=== PATIENT | male | born 1990 | race Caucasian/White ===

== ENCOUNTER 2023-03-24 09:43 | Emergency (ER) | payer OTHER, SELFPAY ==
[2023-03-24 09:57] VITALS: BP 118/76; PULSE 70; RESP 16; TEMP 36.6; O2SAT 100
--- NOTE | 2023-03-24 10:07 | ED.URI ---
HPI - URI/Sore Throat General Chief Complaint: Upper Respiratory Infection Stated Complaint: Sinus Infection Time Seen by Provider: 03/24/23 10:08 Source: patient Mode of arrival: ambulatory Limitations: no limitations History of Present Illness HPI Narrative: 33 y/o male presented for c/o left facial redness with mild tenderness and swelling, onset today. States the left lower jaw felt like a swollen gland. Endorses for about 3 days some sinus drainage. Currently denies sinus pressure, epistasis, dental pain, headache sore throat or dizziness. Denies blisters or lesions to the reddened area. Denies injury. Denies sob, wheezing, n/v/d/f/c. Took Claritin this morning. Related Data Allergies Allergy/AdvReac Type Severity Reaction Status Date / Time No Known Allergies Allergy Verified 03/24/23 10:11 Review of Systems Review of Systems: CONSTITUTIONAL: Denies body aches, fever, chills, or sweats. EYES: Denies visual changes, redness, or discharge. ENT: Denies rhinorrhea, congestion CARDIOVASCULAR: Denies chest pain, palpitations, or edema. RESPIRATORY: Denies cough or dyspnea. GASTROINTESTINAL: Denies abdominal pain, nausea, vomiting, or diarrhea. SKIN: Left face with redness and swelling MUSCULOSKELETAL: Denies back pain, joint pain, or myalgia. NEUROLOGIC: Denies headache, numbness, tingling, or weakness. [facility] Past Medical History Medical History (Updated 03/24/23 @ 10:31 by Kami Kruger APRN) No pertinent past medical history Comments At time of signature, I have reviewed and agree with nursing past medical, surgical, social and family history unless otherwise noted. Please see nursing chart for further information. There is no relevant family history pertinent to the presenting complaint Exam Narrative: GENERAL: Well-appearing HEAD: Normocephalic, atraumatic. EYES: conjunctivae clear, and EOMI. ENT: Mucous membranes moist. TMs normal bilaterally. Oropharynx without edema, erythema or lesions. Left upper posterior dental caries at #14. Nontender dentition/gumline with palpation. No maxillary sinus tenderness. NECK: Supple. No lymphadenopathy CHEST: Clear to auscultation. HEART: Regular rate and rhythm. SKIN: Warm, dry. Left cheek with mild swelling and erythema, extends laterally approx [id number], and extends distally approx 2cm x4 cm towards lower jaw line; minimally tender with firm palpation, no vesicles or open areas. No bruising. NEURO: Alert and oriented x3. HENMT: Face images: 1. area of erythema and mild swelling to left face Course Course Emergency Course: Patient is aware of diagnosis, understands and agrees to treatment plan. Anticipatory guidance given. Patient agrees to follow-up as directed and is aware of reasons to seek care at the emergency department. Portions of this record may have been created with voice recognition software Level of Care: Express Care Visit Vital Signs Vital signs: Vital Signs Temperature 97.9 F 03/24/23 09:57 Pulse Rate 70 03/24/23 09:57 Respiratory Rate 16 03/24/23 09:57 Blood Pressure 118/76 03/24/23 09:57 Pulse Oximetry 100 03/24/23 09:57 Temperature 97.9 F 03/24/23 09:57 Pulse Rate 70 03/24/23 09:57 Respiratory Rate 16 03/24/23 09:57 Blood Pressure 118/76 03/24/23 09:57 Pulse Oximetry 100 03/24/23 09:57 Reviewed MDM - URI/Sore Throat MDM Narrative Medical decision making narrative: Discussed physical exam findings c/w cellulitis though appears as a very mild case. No sinus tenderness. Discussed danger triangle. Rx abx. Advised supportive measures and signs/symptoms to go to the ER. Pt is appropriate for outpt treatment and f/u. Differential Diagnosis Differential diagnosis: Likely upper respiratory infection, sinusitis, viral infection and other (cellulitis, dental abscess, contusion, zoster, contact dermatitis) Discharge Plan Discharge Clinical Impression: Facial cellulitis Patient
== END 2023-03-24 10:20 | disposition home or self-care (01) ==
PROVIDERS: Emergency Provider Nurse Practitioner Family
DX: L03.211 Cellulitis of face (principal)
CPT/HCPCS: 99213; G0463

== ENCOUNTER 2023-03-26 14:59 | Emergency (ER) | payer OTHER, SELFPAY ==
--- NOTE | 2023-03-26 15:22 | ED.SKABFB ---
HPI - Skin/Abscess/Foreign Bdy General Chief complaint: Wound/Laceration Stated complaint: swollen neck; rash on face Time Seen by Provider: 03/26/23 15:03 Source: patient Mode of arrival: ambulatory Limitations: no limitations History of Present Illness HPI narrative: Pj is a 33-year-old male patient presenting to the clinic today with complaints of facial swelling and redness. States that he was seen on Sunday and given prescription for Augmentin. States that the redness and swelling seems to be getting worse. Denies any fever or chills. Related Data Allergies Allergy/AdvReac Type Severity Reaction Status Date / Time No Known Allergies Allergy Verified 03/26/23 15:19 Review of Systems Review of Systems: Pertinent positives per HPI. Patient denies any fever, chills, headache, visual changes, dizziness, cough, shortness of breath, chest pain, palpitations, nausea, vomiting, diarrhea, constipation, abdominal pain, or any urinary issues. [facility] Past Medical History Medical History (Updated 03/26/23 @ 15:24 by Evangelist Silverman, LUIS ANTONIO) No pertinent past medical history Comments At the time of my signature, I reviewed and agree with the nursing past medical, surgical, social, and family history. There is no relevant family history pertinent to the patient complaint. Exam Narrative: General: Well-developed, well nourished, in no apparent distress Head: Normocephalic, [id number]-[id number] facial swelling and redness over the maxilla and extending into the cheek Eyes: Pupils equally round and reactive to light bilaterally, EOM intact, sclera and conjunctive clear, no discharge, lids normal Ears: TMs intact and clear, ear canals clear, no drainage, grossly hearing normal. Nose: Nares patent, no discharge, no inflammation, no sinus tenderness. Mouth: Oral pharynx without lesions or masses, good dentition, MMM. Neck: Supple, trachea midline, no enlargement of anterior or posterior cervical nodes, no thyroid masses or goiter palpable. Cardio: Regular rate and rhythm, s1 and s2 normal, no murmur appreciated. Resp: Clear to auscultation bilaterally, no rhonchi, rales, wheezing or rubs Course Course Emergency Course: Portions of this record may have been created with voice recognition software. Level of Care: Express Care Visit Vital Signs Vital signs: Vital signs reviewed MDM - Skin/Abscess/Foreign Bdy MDM Narrative Medical decision making narrative: At the time of visit patient is resting comfortably on the exam table. I suspect patient has facial cellulitis. Will add doxycycline to the regimen and supportive measures were discussed with the patient he voiced understanding discharge instructions and agrees to treatment plan reflects symptoms reviewed with the patient on when to go to the emergency room. Differential Diagnosis Differential diagnosis: Likely abscess of skin or subcutaneous tissue, cellulitis, eczema, insect bites, impetigo and contact dermatitis Discharge Plan Discharge Clinical Impression: Cellulitis of face Patient Disposition: Home, Self-Care Condition: Stable Instructions: Antibiotic Form, Cellulitis (ED) Additional Instructions: Continue Augmentin and start taking doxycycline May take Tylenol/Motrin as needed for pain or fever Increase fluids and stay well hydrated Go to the emergency room if symptoms worsen-high fever not controlled by Tylenol or Motrin, lethargy, weakness, confusion, increase in pain or swelling, increase in redness, chest pain, shortness breath, or abdominal pain Prescriptions: New doxycycline hyclate 100 mg capsule 100 mg PO BID 10 Days Qty: 20 0RF No Action amoxicillin-pot clavulanate 875-125 mg tablet 1 tablet PO Q12H 7 Days Qty: 14 0RF Follow-up/Referrals: PHYSICIAN NOT ON STAFF,NONSTAFF [Primary Care Provider] - Time of Disposition: 15:26 Quality NIHSS Nursing Documentation ED NIHSS nursing documentati
== END 2023-03-26 15:29 | disposition home or self-care (01) ==
PROVIDERS: Emergency Provider Nurse Practitioner Family
DX: L03.211 Cellulitis of face (principal)
CPT/HCPCS: 99213; G0463

== ENCOUNTER 2024-04-02 17:33 | Emergency (ER) | payer OTHER, SELFPAY ==
[2024-04-02 17:42] VITALS: BP 125/71; PULSE 78; RESP 16; TEMP 36.6; O2SAT 99
--- NOTE | 2024-04-02 17:44 | ED.URI ---
HPI - URI/Sore Throat General Chief Complaint: Upper Respiratory Infection Stated Complaint: COUGH/LOSING VOICE/PRESSURE BEHIND L EAR Time Seen by Provider: 04/02/24 17:45 History of Present Illness HPI Narrative: 34-year-old male presented for complaint of losing his voice over the past 2 days, nasal congestion, cough, pressure in the left ear. He also the endorses exposure to head lice. Patient denies shortness of breath, wheezing nausea, vomiting, diarrhea or lethargy. Denies painful swallow or difficulty maintaining secretions. He has taken NyQuil for symptoms. Endorses daughter had rhino virus last week and is the source of head lice. Related Data Allergies Allergy/AdvReac Type Severity Reaction Status Date / Time No Known Allergies Allergy Verified 04/02/24 17:56 Review of Systems Review of Systems: CONSTITUTIONAL: reports body aches, fever, chills, or sweats. EYES: Denies visual changes, redness, or discharge. ENT: Denies rhinorrhea, congestion, reports hoarse voice, otalgia. CARDIOVASCULAR: Denies chest pain, palpitations, or edema. RESPIRATORY: Denies dyspnea. GASTROINTESTINAL: Denies abdominal pain, nausea, vomiting, or diarrhea. SKIN: Denies rash, itching, or wounds. MUSCULOSKELETAL: Denies back pain, joint pain PMFSH Past Medical History Medical History No pertinent past medical history Surgical History Surgical History Hx of LASIK Family History Family History Father Hypertension Social History Social History Smoking status: Never smoker Second hand tobacco smoke exposure: No Alcohol intake: current Substance use: never Living arrangements: with family Occupation/Education: occupation Gender identity (if verbalized by the patient): Male Exam Narrative: GENERAL: mildly Ill-appearing, no acute distress. EYES: conjunctivae clear ENT: Mucous membranes moist. Right TM pearly fowler with normal light reflex; Left TM erythematous, bulging and intact with purulent effusion; canal not erythematous, no drainage; no tragal tenderness. Oropharynx erythematous without lesions. Tonsils not enlarged and without exudate. Hoarse voice noted. No drooling, no trismus, uvula midline. No tripod positioning, hot potato voice, or soft palate swelling. NECK: Supple. No lymphadenopathy CHEST: Clear to auscultation, breath sounds equal. No respiratory distress, speaks in full sentences. HEART: Regular rate and rhythm. No murmur heard. SKIN: Warm, dry, no rash. No lice on exam. NEURO: Alert and oriented x3. Course Course Emergency Course: Patient is aware of diagnosis, understands and agrees to treatment plan. Anticipatory guidance given. Patient agrees to follow-up as directed and is aware of reasons to seek care at the emergency department. Portions of this record may have been created with voice recognition software Level of Care: Express Care Visit Vital Signs Vital signs: Vital Signs Temperature 98 F 04/02/24 17:42 Pulse Rate 78 04/02/24 17:42 Respiratory Rate 16 04/02/24 17:42 Blood Pressure 125/71 04/02/24 17:42 Pulse Oximetry 99 04/02/24 17:42 Temperature 98 F 04/02/24 17:42 Pulse Rate 78 04/02/24 17:42 Respiratory Rate 16 04/02/24 17:42 Blood Pressure 125/71 04/02/24 17:42 Pulse Oximetry 99 04/02/24 17:42 MDM - URI/Sore Throat MDM Narrative Medical decision making narrative: Discussed physical exam findings consistent with left AOM and hoarse voice, no lice noted on exam Advise supportive treatments. Patient is appropriate for outpatient treatment and follow-up. Differential Diagnosis Differential diagnosis: Likely upper respiratory infection, otitis media, sinusitis, viral infection, influenza and pharyngitis
== END 2024-04-02 18:11 | disposition home or self-care (01) ==
PROVIDERS: Emergency Provider Nurse Practitioner Family; PCP Family Medicine
DX: H66.92 Otitis media, unspecified, left ear (principal); Z20.7 Contact with and (suspected) exposure to pediculosis, acariasis and other infestations
CPT/HCPCS: 99213; G0463

== ENCOUNTER 2024-04-16 09:25 | Emergency (ER) | payer OTHER, SELFPAY ==
[2024-04-16 09:34] VITALS: BP 123/80; PULSE 86; RESP 16; TEMP 36.9; O2SAT 99
--- NOTE | 2024-04-16 09:35 | ED.SKABFB ---
HPI - Skin/Abscess/Foreign Bdy General Chief complaint: Skin/Abscess/Foreign Body Stated complaint: LICE CHECK Time Seen by Provider: 04/16/24 09:35 Source: patient, RN notes reviewed and old records reviewed Mode of arrival: ambulatory Limitations: no limitations History of Present Illness HPI narrative: 34 year old male accompanied by spouse with stated complaints that DCFS wants proof that they don't have pubic lice. Patient reports that their daughter had white crusting in eye brows and on eye lashes and they took her to an rn new graduate on Sunday. They were told that child had pubic lice in her eye lashes and brows and they were unable to remove due to child not being cooperative and [facility] Father states they [facility] child [facility] and child was given Ketamine and track repairer helper removed lice from child's eyes and examined her eyes and they are to follow up [facility]. Father states that child had head lice week ago and they treated child, they thought she had picked it up from daycare. Related Data Home Medications Medication Instructions Recorded Confirmed No Home Medications 04/16/24 04/16/24 Allergies Allergy/AdvReac Type Severity Reaction Status Date / Time No Known Allergies Allergy Verified 04/16/24 09:30 Review of Systems Review of Systems: CONSTITUTIONAL: Denies fever, chills, or sweats. EYES: Denies visual changes, redness, or discharge. ENT: Denies rhinorrhea, congestion, sore throat, or otalgia. CARDIOVASCULAR: Denies chest pain, palpitations, or edema. RESPIRATORY: Denies cough or dyspnea. GASTROINTESTINAL: Denies abdominal pain, nausea, vomiting, or diarrhea. GENITOURINARY: Denies dysuria or hematuria. SKIN: Denies rash or itching.denies any noted lice or lesions MUSCULOSKELETAL: Denies back pain, joint pain, or myalgia. NEUROLOGIC: Denies headache, numbness, or weakness. PSYCHIATRIC: Denies anxiety or depression. All systems reviewed & are unremarkable except as noted in HPI and below PMFSH Past Medical History Medical History No pertinent past medical history Surgical History Surgical History Hx of LASIK Family History Family History Father Hypertension Social History Social History Smoking status: Never smoker Second hand tobacco smoke exposure: No Alcohol intake: current Substance use: never Living arrangements: with family Occupation/Education: occupation Gender identity (if verbalized by the patient): Male Comments At time of signature, agree with nursing past medical, surgical, social and family history. There is no relevant family history pertinent to the presenting complaint Exam Narrative: GENERAL: Well-appearing, well-nourished, and in no acute distress. clean and well kept HEAD: Normocephalic, atraumatic. EYES: PERRLA and EOMI. patient wears glasses ENT: Nares clear, no rhinorrhea or epistaxis. Mucous membranes moist. NECK: Supple.no lymphadenopathy CHEST: Clear to auscultation. No respiratory distress.SAO2 99% on room air HEART: Regular rate and rhythm. No murmur heard. Normal peripheral pulses. ABDOMEN: Soft, nontender, nondistended, normal active bowel sounds. EXTREMITIES: Normal range of motion. No edema. SKIN: Warm, dry, no rash With interior specialist present patient was examined in pubic are using tripathi lamp with no lice noted or nits NEURO: No focal deficits. Alert and oriented x3. Course Course Emergency Course: Patient is aware of diagnosis, understands and agrees to treatment plan.? Anticipatory guidance given.? Patient agrees to follow-up as directed and is aware of reasons to seek care at the emergency department. Portions of this record may have been created with voice recognit
== END 2024-04-16 10:08 | disposition home or self-care (01) ==
PROVIDERS: Emergency Provider Registered Nurse; PCP Family Medicine
DX: Z04.89 Encounter for examination and observation for other specified reasons (principal)
CPT/HCPCS: 99211; G0463

== ENCOUNTER 2024-04-25 09:07 | Outpatient (CLI) | payer OTHER, SELFPAY ==
[2024-04-25 09:28] LABS: Mean Corpuscular HGB Conc 33.3 g/dl (32-36); Mean Corpuscular Hemoglobin 28.3 pg (26-34); Mean Platelet Volume 10.4 fl (7.4-10.4); Platelet Count Result 239 k/mm3 (150-375); Red Blood Count 5.65 M/mm3 (4.6-6.20); Red Cell Distribution Width 13.1 % (11.5-14.5); White Blood Count 5.8 K/mm3 (4.5-10.0)
[2024-04-25 09:38] LABS: Add Urine Microscopic? NO; Appearance Urine Clear (Clear); Bilirubin Urine Negative (Negative); Blood Urine Negative (Negative); Color Urine Yellow (Yellow); Glucose Urine UA Negative (Negative); Ketones Urine Negative (Negative); Leukocyte Esterase Ur Negative LEU/UL (Negative); Nitrate Urine Negative (Negative); Protein Urine Negative (Negative); Specific Grav Ur 1.023 (1.001-1.035); Urobilinogen Urine 0.2 mg/dL (<2.0)
[2024-04-25 10:16] LABS: Alanine Aminotransferase 42 U/L (6-50); Albumin Level 4.8 g/dL (3.5-5.1); Alkaline Phosphatase 101 U/L (38-126); Anion Gap 9 mmol/L (4-12); Aspartate Amino Transferase 28 U/L (17-59); Bilirubin,Total 0.9 mg/dL (0.2-1.3); Blood Urea Nitrogen 15 mg/dL (9-20); Calcium 9.5 mg/dL (8.4-10.2); Carbon Dioxide 30 mmol/L (22-30); Chloride 100 mmol/L (98-107); Cholesterol 240 mg/dL (0-200); Estimated Glomerular Filt Rate > 60; Glucose 96 mg/dL (65-110); HDL Direct 34 mg/dL; Potassium 4.4 mmol/L (3.4-5.0); Sodium 139 mmol/L (137-145); Triglycerides 210 mg/dL (<150)
[2024-04-25 10:27] LABS: LDL Cholesterol Direct 161 mg/dL
[2024-04-25 10:45] LABS: Thyroid Stimulating Hormone 0.589 uIU/mL (0.465-4.680)
== END 2024-04-25 09:08 | disposition home or self-care (01) ==
PROVIDERS: PCP Family Medicine; Visit Provider Physician Assistant Medical
DX: Z00.00 Encounter for general adult medical examination without abnormal findings (principal); Z68.29 Body mass index [BMI] 29.0-29.9, adult
CPT/HCPCS: 36415; 80053; 80061; 81003; 84443; 85027

== ENCOUNTER 2024-10-09 09:45 | Outpatient (CLI) | payer OTHER, SELFPAY ==
--- NOTE | ~2024-10-09 | XR_ITS ---
AP view of the pelvis and AP and lateral views of the bilateral hips Clinical history: Pain Findings: No acute fracture or dislocation is seen. Osseous alignment is anatomic. Bilateral hip and SI joint spaces are preserved. Soft tissues are unremarkable. Impression: No significant abnormality is seen. Reviewed, dictated and finalized at [facility]. SHING MACHINE OPERATOR Impression: No significant abnormality is seen.
--- NOTE | ~2024-10-09 | XR_ITS ---
Lumbosacral Spine: AP and lateral views Clinical History: Pain Findings: The normal lordotic curve is maintained. The vertebral bodies and posterior elements are i ntact. The intervertebral disc spaces are preserved. The sacroiliac joints are normally outlined. Impression: No significant abnormality. Reviewed, dictated and finalized at [facility]. CTOR OF ROOMS Impression: No significant abnormality.
== END 2024-10-09 09:46 | disposition home or self-care (01) ==
LOC: MICIMG 09:46
PROVIDERS: PCP Family Medicine; Visit Provider Physician Assistant Medical
DX: M25.552 Pain in left hip (principal); M54.10 Radiculopathy, site unspecified
CPT/HCPCS: 72100; 73521

== ENCOUNTER 2024-10-10 08:55 | Emergency (ER) | payer OTHER, SELFPAY ==
--- NOTE | ~2024-10-10 | CT_ITS ---
EXAMINATION: CT lumbar spine wo con DATE: 10/10/2024 13:02 INDICATION: Lumbago and sciatica TECHNIQUE: Computed tomography (CT) of the lumbar spine was performed without intravenous contrast. A utomated exposure control and iterative reconstruction technique were employed. The dose-length produ ct was 690.31 mGy-cm. COMPARISON: None FINDINGS: Alignment is normal. Chronic appearing mild likely physiologic anterior wedging at T12 and L1. Remain ing vertebral body heights are normal. No fracture. Mild disc height loss at T11-T12, L4-L5 and minim ally at T12-L1 and L5-S1. Mild bilateral sacroiliac osteoarthritis. Paravertebral soft tissues are un remarkable. The following disc levels are specifically discussed: T11-T12: Small right paracentral disc protrusion. There is mild bilateral facet joint osteoarthritis. There is no neural foraminal stenosis. There is mild central canal stenosis. T12-L1: The disc does not extend beyond the endplate margin. There is mild bilateral facet joint oste oarthritis. There is no neural foraminal stenosis. There is no central canal stenosis. L1-L2: Disc is minimally bulging. There is mild bilateral facet joint osteoarthritis. There is no rj ral foraminal stenosis. There is no central canal stenosis. L2-L3: Disc is mildly bulging. There is minimal bilateral facet joint osteoarthritis. There is mild b ilateral neural foraminal stenosis. There is minimal central canal stenosis. L3-L4: Disc is bulging. There is minimal bilateral facet joint osteoarthritis. There is mild bilatera l neural foraminal stenosis. There is mild central canal stenosis. L4-L5: Disc is bulging with superimposed left paracentral disc protrusion versus extrusion. There is mild right and minimal left facet joint osteoarthritis. There is mild bilateral neural foraminal sten osis. There is mild central canal stenosis as well as narrowing of the left lateral recess. L5-S1: Disc is bulging. There is mild bilateral facet joint osteoarthritis. There is minimal bilatera l neural foraminal stenosis. There is no central canal stenosis. IMPRESSION: 1. Mild lumbar spondylosis most notable for a left paracentral disc protrusion versus extrusion at L4 -L5 resulting in mild central canal stenosis but more prominent narrowing of the left lateral recess which may compress the traversing left L5 nerve root. Correlate clinically for muscle weakness of gre at toe extension and sensory change of the medial foot and great toe. Reviewed, dictated and finalized at location A. FILLER CIGAR ROLLER MACHINE IMPRESSION: 1. Mild lumbar spondylosis most notable for a left paracentral disc protrusion versus extrusion at L4-L5 resulting in mild central canal stenosis but more pro minent narrowing of the left lateral recess which may compress the traversing l eft L5 nerve root. Correlate clinically for muscle weakness of great toe extens ion and sensory change of the medial foot and great toe.
[2024-10-10 09:06] VITALS: BP 125/74; PULSE 80; RESP 16; TEMP 36.5; O2SAT 99
--- OUTSIDE RECORDS SUMMARY | 2024-10-10 09:23 | XMS_ITS | Clinical Summary ---
Author Organization [address] [address] Care Team Providers Care Recovery Analyst Name Role Phone No, Physician Primary Care Provider [phone] Latoya Howell MD Unavailable Allergies No known active allergies Medications No known medications Active Problems No known active problems Encounters Date Type Department Care Team Description 08/11/2024 8:45 AM TOOL SUPERVISOR Office Visit [facility] Medical [facility] Care at [address] [address] Yessica Boucher NP Influenza A (Primary Dx) from Last 3 Months Social History Tobacco Use Types Packs/Day Years Used Date Smoking Tobacco: Never Smokeless Tobacco: Never Tobacco Cessation:Counseling Given: Not Answered Alcohol Use Standard Drinks/Week Comments No 0 (1 standard drink = 0.6 oz pur e alcohol) Sex and Gender Information Value Date Recorded Sex Assigned at Not on file Legal Sex Male 9:12 AM TOOL SUPERVISOR Gender Identity Not on file Sexual Orientation Not on file Obstetrics History Last Filed Vital Signs Vital Sign Reading Time Taken Comments Blood Pressure 120/78 08/11/2024 8:16 AM TOOL SUPERVISOR Pulse 111 08/11/2024 8:16 AM TOOL SUPERVISOR Temperature 37.6 C (99.6 F) 08/11/2024 8:16 AM TOOL SUPERVISOR Respiratory Rate 22 08/11/2024 8:16 AM TOOL SUPERVISOR Oxygen Saturation 97% 08/11/2024 8:16 AM TOOL SUPERVISOR Inhaled Oxygen Concentration - - Weight 94.8 kg (209 lb) 08/11/2024 8:16 AM TOOL SUPERVISOR Height 177.8 cm (5' 10 ) 06/05/2022 9:18 AM CDT Body Mass Index 29.99 06/05/2022 9:18 AM CDT Plan of Treatment Health Maintenance Due Date Last Done Comments Depression Screening 1992 Hepatitis C Screening 1992 Hepatitis B Screening 2010 Regular Well Visit/Exam 18-64 2010 DTaP/Tdap/Td Vaccine (3 - Td or Tdap) 10/24/2016 10/24/2006, 09/06/2005 Varicella Vaccines Completed 09/06/2009, 01/25/1995 Covid-19 Vaccine Completed 08/02/2024, , 07/11/2022, Additional history exists Influenza Vaccine Completed 08/02/2024, , 07/11/2022 HPV Vaccines Aged Out No longer eligi ble based on patient's age to complete this topic Pneumococcal vaccine <65 Aged Out No longer eligible based on patient's age to complete this topic Procedures Procedure Name Priority Date/Time Associated Diagnosis Comments POCT RAPID STREP Routine 08/11/2024 8:25 AM TOOL SUPERVISOR Influenza A POC INFLUENZA A/B, COVID-19 ANTIGEN Routine 08/11/2024 8:25 AM TOOL SUPERVISOR Influenza A from Last 3 Months Results * (ABNORMAL) POC Influenza A/B, COVID-19 antigen (08/11/2024 8:25 AM TOOL SUPERVISOR) Influenza A Ag, POC Positive(A) Negative [facility] Influenza B Ag, POC Negative Negative [facility] COVID-19 Ag POC Presumptive Negative Presumptive Negative, Invalid [facility] Nasal 08/11/2024 8:25 AM TOOL SUPERVISOR us Yessica Boucher NP POINT OF CARE TEST ORDERAB LES Final Result [facility] [address] [place] [address] * POCT rapid strep A (08/11/2024 8:25 AM TOOL SUPERVISOR) Rapid Strep A, POC Negative Negative Swab 08/11/2024 8:25 AM TOOL SUPERVISOR Yessica Boucher CIVIL ENGINEERING PROJECT DESIGNER POINT OF CARE TEST ORDERAB LES Final Result from Last 3 Months Insurance [facility] CHOICE PL[facility] HMO/PPO Address: [place] [address] Care Teams Recovery Analyst Relationship Specialty Start Date End Date No, Physician PCP - General 06/05/22 Latoya Howell MD 06/05/22
--- OUTSIDE RECORDS SUMMARY | 2024-10-10 09:23 | XMS_ITS | Referral Summary ---
Author Organization [facility] [address] [address] Care Team Providers Care Inspector Packer Glass Container Name Role Phone No, Physician Primary Care Provider [phone] Latoya Howell MD Unavailable Encounters Date Type Department Care Team Description 08/11/2024 8:45 AM AGILE TEST LEAD Office Visit [facility] Care at [address] [address] Yessica Boucher NP Influenza A (Primary Dx) from Last 3 Months Allergies No known active allergies Medications No known medications Active Problems No known active problems Social History Tobacco Use Types Packs/Day Years Used Date Smoking Tobacco: Never Smokeless Tobacco: Never Tobacco Cessation:Counseling Given: Not Answered Alcohol Use Standard Drinks/Week Comments No 0 (1 standard drink = 0.6 oz pur e alcohol) Sex and Gender Information Value Date Recorded Sex Assigned at Not on file Legal Sex Male 9:12 AM AGILE TEST LEAD Gender Identity Not on file Sexual Orientation Not on file Last Filed Vital Signs Vital Sign Reading Time Taken Comments Blood Pressure 120/78 08/11/2024 8:16 AM AGILE TEST LEAD Pulse 111 08/11/2024 8:16 AM AGILE TEST LEAD Temperature 37.6 C (99.6 F) 08/11/2024 8:16 AM AGILE TEST LEAD Respiratory Rate 22 08/11/2024 8:16 AM AGILE TEST LEAD Oxygen Saturation 97% 08/11/2024 8:16 AM AGILE TEST LEAD Inhaled Oxygen Concentration - - Weight 94.8 kg (209 lb) 08/11/2024 8:16 AM AGILE TEST LEAD Height 177.8 cm (5' 10 ) 06/05/2022 9:18 AM CDT Body Mass Index 29.99 06/05/2022 9:18 AM CDT Plan of Treatment Not on file Procedures Procedure Name Priority Date/Time Associated Diagnosis Comments POCT RAPID STREP Routine 08/11/2024 8:25 AM AGILE TEST LEAD Influenza A POC INFLUENZA A/B, COVID-19 ANTIGEN Routine 08/11/2024 8:25 AM AGILE TEST LEAD Influenza A from Last 3 Months Results * (ABNORMAL) POC Influenza A/B, COVID-19 antigen (08/11/2024 8:25 AM AGILE TEST LEAD) Influenza A Ag, POC Positive(A) Negative [facility] Influenza B Ag, POC Negative Negative [facility] COVID-19 Ag POC Presumptive Negative Presumptive Negative, Invalid [facility] Nasal 08/11/2024 8:25 AM AGILE TEST LEAD Yessica Boucher CV RN POINT OF CARE TEST ORDERAB LES Final Result Performing Organization Address City/State/[facility] Co de Phone Number [facility] [address] [place] [address] * POCT rapid strep A (08/11/2024 8:25 AM AGILE TEST LEAD) Rapid Strep A, POC Negative Negative Swab 08/11/2024 8:25 AM AGILE TEST LEAD Yessica Boucher CV RN POINT OF CARE TEST ORDERAB LES Final Result from Last 3 Months Insurance CHOICE PLUS Care Teams Inspector Packer Glass Container Relationship Specialty Start Date End Date No, Physician PCP - General 06/05/22 Latoya Howell MD 06/05/22
--- OUTSIDE RECORDS SUMMARY | 2024-10-10 09:23 | XMS_ITS | Clinical Summary ---
Author Organization [facility] Care Team Providers Care Packaging Manager Name Role Phone Unavailable Primary Care Provider Unavailabl e Social History Tobacco Use Types Packs/Day Years Used Date Smoking Tobacco: Never Assessed Sex and Gender Information Value Date Recorded Sex Assigned at Not on file Legal Sex Male 7:32 PM CDT Gender Identity Not on file Sexual Orientation Not on file Plan of Treatment Health Maintenance Due Date Last Done Comments Hepatitis C Virus (HCV) Screening 1992 TdaP Immunization 1992 Hepatitis B Immunization (1 of 3 - 19+ 3-dose series) 2011 Influenza Immunization (#1) 2024 SARS-COV-2 Immunization (2 - 2023-25 season) 2024 07/21/2021 Respiratory Syncytial Virus (RSV) Immunization (Adult) (1 - 1-dose 75+ series) 2067 Meningococcal Immunization (ACWY) Aged Out No longer eligible based on patient's age to complete this topic Pneumococcal Immunization Combined Aged Out No longer eligible based on patient's age to complete this topic Rotavirus Immunization Aged Out No lo nger eligible based on patient's age to complete this topic
--- OUTSIDE RECORDS SUMMARY | 2024-10-10 09:23 | XMS_ITS | Clinical Summary ---
Author Organization [facility] Address [address] [facility] Attn: Epic Prelude ADT ASHLEE MENDOZA [address] Care Team Providers Care Resident Care Technician Name Role Phone Unavailable Primary Care Provider Unavailabl e Allergies No known active allergies Medications ferrous gluconate 325 mg (36 mg iron) Tablet Take 325 mg by mouth 2 times daily. 10/01/2015 Active Active Problems Problem Noted Date Diagnosed Date Iron deficiency anemia 10/01/2015 Microcytic hypochromic anemia 10/01/2015 Family history of celiac disease 10/01/2015 Social History Tobacco Use Types Packs/Day Years Used Date Smoking Tobacco: Never Alcohol Use Standard Drinks/Week Comments No 0 (1 standard drink = 0.6 oz pur e alcohol) Sex and Gender Information Value Date Recorded Sex Assigned at Not on file Legal Sex Male 12:22 AM CREDIT COLLECTIONS REP Gender Identity Not on file Sexual Orientation Not on file Last Filed Vital Signs Vital Sign Reading Time Taken Comments Blood Pressure 112/63 11/24/2015 2:09 PM CDT Pulse 68 11/24/2015 2:09 PM CDT Temperature 36.6 C (97.9 F) 11/24/2015 2:09 PM CDT Respiratory Rate 16 11/24/2015 2:09 PM CDT Oxygen Saturation - - Inhaled Oxygen Concentration - - Weight 78.9 kg (174 lb) 11/24/2015 2:09 PM CDT Height 175.3 cm (5' 9 ) 11/24/2015 2:09 PM CDT Body Mass Index 25.7 11/24/2015 2:09 PM CDT Plan of Treatment Health Maintenance Due Date Last Done Comments DTAP/TDAP/TD VACCINES (1 - Tdap) 2011 HEPATITIS B VACCINES (1 of 3 - 19+ 3-dose series) 2011 INFLUENZA VACCINE (#1) 2024 HPV VACCINES Aged Out No longer eligi ble based on patient's age to complete this topic PNEUMOCOCCAL VACCINE 0-64 YEARS Aged Out No longer eligible based on patient's age to complete this topic
--- OUTSIDE RECORDS SUMMARY | 2024-10-10 12:20 | XMS_ITS | Clinical Summary ---
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
--- OUTSIDE RECORDS SUMMARY | 2024-10-10 12:20 | XMS_ITS | Clinical Summary ---
Author Organization [address] [address] Care Team Providers Care Greaser Operator Name Role Phone No, Physician Primary Care Provider [phone] Latoya Howell MD Unavailable Allergies No known active allergies Medications No known medications Active Problems No known active problems Encounters Date Type Department Care Team Description 08/11/2024 8:45 AM SHELTERED WORKSHOP WORKER Office Visit [facility] Care at [address] [address] Yessica Boucher NP Influenza A [...] on file Legal Sex Male 9:12 AM SHELTERED WORKSHOP WORKER Gender Identity Not on file Sexual Orientation Not on file Obstetrics History Last Filed Vital Signs Vital Sign Reading Time Taken Comments Blood Pressure 120/78 08/11/2024 8:16 AM SHELTERED WORKSHOP WORKER Pulse 111 08/11/2024 8:16 AM SHELTERED WORKSHOP WORKER Temperature 37.6 C (99.6 F) 08/11/2024 8:16 AM SHELTERED WORKSHOP WORKER Respiratory Rate 22 08/11/2024 8:16 AM SHELTERED WORKSHOP WORKER Oxygen Saturation 97% 08/11/2024 8:16 AM SHELTERED WORKSHOP WORKER Inhaled Oxygen Concentration - - Weight 94.8 kg (209 lb) 08/11/2024 8:16 AM SHELTERED WORKSHOP WORKER Height 177.8 cm (5' 10 ) 06/05/2022 [...] POCT RAPID STREP Routine 08/11/2024 8:25 AM SHELTERED WORKSHOP WORKER Influenza A POC INFLUENZA A/B, COVID-19 ANTIGEN Routine 08/11/2024 8:25 AM SHELTERED WORKSHOP WORKER Influenza A from Last 3 Months Results * (ABNORMAL) POC Influenza A/B, COVID-19 antigen (08/11/2024 8:25 AM SHELTERED WORKSHOP WORKER) Influenza A Ag, POC Positive(A) Negative [facility] Influenza B Ag, POC Negative Negative [facility] COVID-19 Ag POC Presumptive Negative Presumptive Negative, Invalid [facility] Nasal 08/11/2024 8:25 AM SHELTERED WORKSHOP WORKER us Yessica Boucher NP POINT OF CARE TEST ORDERAB LES Final Result [facility] [address] [place] [address] * POCT rapid strep A (08/11/2024 8:25 AM SHELTERED WORKSHOP WORKER) Rapid Strep A, POC Negative Negative Swab 08/11/2024 8:25 AM SHELTERED WORKSHOP WORKER Yessica Boucher ROAD CREW MEMBER POINT OF CARE TEST ORDERAB LES Final Result from Last 3 Months Insurance [facility] CHOICE PLUS [facility] HMO/PPO Address: [place] [address] Care Teams Greaser Operator Relationship Specialty Start Date End Date No, Physician PCP - General 06/05/22 Latoya Howell MD 06/05/22
--- OUTSIDE RECORDS SUMMARY | 2024-10-10 12:20 | XMS_ITS | Clinical Summary ---
Author Organization [facility] Care Team Providers Care Pe Manager Name Role Phone Unavailable Primary Care [...]
--- OUTSIDE RECORDS SUMMARY | 2024-10-10 12:20 | XMS_ITS | Referral Summary ---
Author Organization [facility] [address] [address] Care Team Providers Care Foxing Cutting Machine Operator Name Role Phone No, Physician Primary Care Provider [phone] Latoya Howell MD Unavailable Encounters Date Type Department Care Team Description 08/11/2024 8:45 AM INSTRUCTOR KNITTING Office Visit [facility] Care at [address] [address] Yessica Boucher NP Influenza A [...] on file Legal Sex Male 9:12 AM INSTRUCTOR KNITTING Gender Identity Not on file Sexual Orientation Not on file Last Filed Vital Signs Vital Sign Reading Time Taken Comments Blood Pressure 120/78 08/11/2024 8:16 AM INSTRUCTOR KNITTING Pulse 111 08/11/2024 8:16 AM INSTRUCTOR KNITTING Temperature 37.6 C (99.6 F) 08/11/2024 8:16 AM INSTRUCTOR KNITTING Respiratory Rate 22 08/11/2024 8:16 AM INSTRUCTOR KNITTING Oxygen Saturation 97% 08/11/2024 8:16 AM INSTRUCTOR KNITTING Inhaled Oxygen Concentration - - Weight 94.8 kg (209 lb) 08/11/2024 8:16 AM INSTRUCTOR KNITTING Height 177.8 cm (5' 10 ) 06/05/2022 9:18 AM CDT Body Mass Index 29.99 06/05/2022 9:18 AM CDT Plan of Treatment Not on file Procedures Procedure Name Priority Date/Time Associated Diagnosis Comments POCT RAPID STREP Routine 08/11/2024 8:25 AM INSTRUCTOR KNITTING Influenza A POC INFLUENZA A/B, COVID-19 ANTIGEN Routine 08/11/2024 8:25 AM INSTRUCTOR KNITTING Influenza A from Last 3 Months Results * (ABNORMAL) POC Influenza A/B, COVID-19 antigen (08/11/2024 8:25 AM INSTRUCTOR KNITTING) Influenza A Ag, POC Positive(A) Negative [facility] Influenza B Ag, POC Negative Negative [facility] COVID-19 Ag POC Presumptive Negative Presumptive Negative, Invalid [facility] Nasal 08/11/2024 8:25 AM INSTRUCTOR KNITTING Yessica Boucher ASSEMBLY DEPARTMENT SUPERVISOR POINT OF CARE TEST ORDERAB LES Final Result Performing Organization Address City/State/[facility] Co de Phone Number [facility] [address] [place] [address] * POCT rapid strep A (08/11/2024 8:25 AM INSTRUCTOR KNITTING) Rapid Strep A, POC Negative Negative Swab 08/11/2024 8:25 AM INSTRUCTOR KNITTING Yessica Boucher ASSEMBLY DEPARTMENT SUPERVISOR POINT OF CARE TEST ORDERAB LES Final Result from Last 3 Months Insurance CHOICE PLUS Care Teams Foxing Cutting Machine Operator Relationship Specialty Start Date End Date No, Physician PCP - General 06/05/22 Latoya Howell MD 06/05/22
--- NOTE | 2024-10-10 12:28 | ED_ITS ---
HPI - Extremity Problem General Chief complaint: Extremity Problem,Nontraumatic Stated complaint: pinched nerve in my hip Time Seen by Provider: 10/10/24 12:11 History of Present Illness HPI Narrative: 34-year-old otherwise healthy male presenting to the emergency department for persistent left-sided lumbago and radicular pain. Patient has been seen by his primary care provider yesterday and prescribed a Medrol Dosepak for which he took the 1st course in addition to getting tramadol. He states his pain is not improved at all and he came to the ER for evaluation. Has been having symptoms for about 1 week. Describes radiculopathy type symptoms especially with flexion of the hip on the left side. Pain radiates from his sciatic nerve distribution down to his foot. No footdrop or weakness. No sensory changes. No saddle anesthesias, no incontinence. Was otherwise in his normal state of health. No history of trauma or any provoking factors to his knowledge. Recent viral syndrome and flu several weeks ago. Related Data Allergies Allergy/AdvReac Type Severity Reaction Status Date / Time No Known Allergies Allergy Verified 10/09/24 08:43 Review of Systems Review of Systems: As reviewed above in HPI [facility] Past Medical History Medical History No pertinent past medical history Surgical History Surgical History Hx of LASIK Family History Family History Father Hypertension Social History Social History Smoking status: Never smoker Second hand tobacco smoke exposure: No Alcohol intake: current Substance use: never Living arrangements: with family Occupation/Education: occupation Gender identity (if verbalized by the patient): Male Exam Narrative: GENERAL: [Well-appearing, well-nourished, and in no acute distress.] HEAD: [Normocephalic, atraumatic.] EYES: [PERRLA and EOMI.] ENT: Nares clear, no rhinorrhea or epistaxis. Mucous membranes moist. NECK: Supple. CHEST: [Clear to auscultation. No respiratory distress.] HEART: [Regular rate and rhythm]. No murmur heard. [Normal peripheral pulses.] ABDOMEN: [Soft, nondistended], [nontender], [No rigidity or guarding] EXTREMITIES: Normal range of motion. [No edema.] Focal reproducible tenderness over the sciatic nerve distribution with palpation of the left-sided gluteal muscles, no overlying skin changes. No rashes. SKIN: Warm, dry, no rash. NEURO: [No focal deficits]. Alert and oriented [x3.] EHL and FHL 5/5 strength, full flexion and extension of the hip bilaterally but the left-sided induces pain. Positive straight leg raise on the left side. No footdrop. No saddle anesthesia. No sensory deficits. PSYCH: [Normal mood and affect.] Course Vital Signs Vital signs: Vital Signs Temperature 36.5 C 10/10/24 09:06 Pulse Rate 80 10/10/24 09:06 Respiratory Rate 16 10/10/24 09:06 Blood Pressure 125/74 10/10/24 09:06 Pulse Oximetry 99 10/10/24 09:06 Oxygen Delivery Room Air 10/10/24 09:06 Temperature 36.5 C 10/10/24 09:06 Pulse Rate 80 10/10/24 09:06 Respiratory Rate 16 10/10/24 09:06 Blood Pressure 125/74 10/10/24 09:06 Pulse Oximetry 99 10/10/24 09:06 Oxygen Delivery Room Air 10/10/24 09:06 MDM - Extremity (Nontraumatic) MDM Narrative Medical decision making narrative: 34-year-old male with no significant medical history presenting with left-sided lumbago and radiculopathy symptoms. Has reproducible pain with palpation of the sciatic nerve as well as positive straight leg raise on the left side. Otherwise well-appearing, 2+ symmetric pulses, warm extremities, normal vital signs with any tachycardia, fever, hypoxia blood pressure concerns. Differential includes lumbago, lumbosacral strain, piriformis syndrome, sciatica, less likely compressive process and he has no red flag signs of cord compression or central etiology. Will obtain a CT scan given that he is having persistent pain despite negative x-rays and conservative therapy although he has only had 1st day course of tramadol and Medrol which makes me think he has not had enough time for significant benefit of the anti-inflammatory medications. Will give him a intramuscular shot of Toradol and oral Robaxin. CT scan without contrast ordered. CT scan shows mild lumbar spondylosis and a left-sided disc protrusion at L4-L5 with mild canal stenosis. Patient has no neurological deficits on examination, not significant disc bulge but enough to cause his pain and symptoms. Patient was reassessed and still having some pain for which she was provide intramuscular Dilaudid with improvement. Patient was counseled on appropriate treatment regimen going forward including completion of his steroids, anti- inflammatory medications, lidocaine patch, Robaxin and will be given a short course of as needed oxycodone for breakthrough pain and referred back to his PCP to pursue physical therapy. Patient was given strict return precautions and instructions which she verbalized understanding and was safe for discharge home at this time. Patient has a safe ride to drive him home. Discharge Plan Discharge Clinical Impression: Lumbago, L4-L5 disc bulge, Left lumbar radiculopathy Patient Disposition: Home, Self-Care Condition: Stable Instructions: Antibiotic Form, Lumbar Disc Herniation (ED), Lumbar Radiculopathy (ED), Lower Back Exercises (ED) Additional Instructions: Your CT scan shows a left-sided disc bulge at the L4-L5 region which correlates with her symptoms. We will continue your current steroid regimen in addition to changing your pain medication regimen to include combination therapy including Tylenol 1000mg every 8 hours, ibuprofen 600 mg every 8 hours, oxycodone 5 mg as needed for breakthrough pain only, Robaxin as needed for back pain at night. Do not take any more Tramadol. Your symptoms will get better with time and anti- inflammatory control and would likely benefit from physical therapy and exercises. Call your regular primary care provider in the next several days to get this scheduled and referred. Return to the ER if you have increased pain in your back, you develop lower extremity weakness/numbness/paralysis, you have numbness or tingling in your private parts, or you are unable to control your ability to urinate/stool. Patient Language: Portuguese Prescriptions: New methocarbamol 500 mg tablet 500 mg PO HS Qty: 7 0RF lidocaine 5 % adhesive patch,medicated 1 patch topical DAILY Qty: 15 0RF Rx Instructions: leave on most painful area for up to 12 hrs oxycodone 5 mg capsule 5 mg PO Q8H PRN (Reason: pain) Qty: 14 0RF ibuprofen 600 mg tablet 600 mg PO TID Qty: 20 0RF acetaminophen [Tylenol Extra Strength] 500 mg tablet 1,000 mg PO TID Qty: 30 0RF No Action methylprednisolone 4 mg tablets,dose pack See Rx Instructions PO PER PKG DIR Qty: 21 0RF Rx Instructions: PO PER PKG DIR tramadol 50 mg tablet 50 mg PO Q6H 5 Days Qty: 20 0RF Follow-up/Referrals: Rene You MD [Primary Care Provider] - Time of Disposition: 13:40
[2024-10-10] MEDS: KETOROLAC 30 MG/ML VIAL (*BKC) IM (13:04)
[2024-10-10] MEDS: methocarbamoL 750 MG TABLET PO (13:05)
[2024-10-10] MEDS: HYDROmorphone HCL INJ (*CRX) 1 MG/ML SYR IM (13:39)
[2024-10-10 13:43] VITALS: BP 127/84; PULSE 76; RESP 16; TEMP 36.2; O2SAT 95
== END 2024-10-10 13:52 | disposition home or self-care (01) ==
PROVIDERS: Emergency Provider Student in an Organized Health Care Education/Training Program; PCP Family Medicine
DX: M51.16 Intervertebral disc disorders with radiculopathy, lumbar region (principal)
CPT/HCPCS: 72131; 96372; 99284; A9270; J1171; J1885

== ENCOUNTER 2025-06-19 08:31 | Outpatient (CLI) | payer OTHER, SELFPAY ==
--- OUTSIDE RECORDS SUMMARY | 2025-06-19 08:47 | XMS_ITS | Clinical Summary ---
Author Organization [facility] Address [address] [facility] Attn: Epic Prelude ADT ASHLEE MENDOZA [address] Care Team Providers Care Facility Examiner Name Role Phone Unavailable Primary Care Provider [...] on file Legal Sex Male 12:22 AM BUSINESS DEVELOPMENT MANAGER Gender Identity Not on file Sexual Orientation [...] 2:09 PM CDT Height 175.3 cm (5' 9) 11/24/2015 2:09 PM CDT Body Mass Index 25.7 11/24/2015 2:09 PM CDT Plan of Treatment Health Maintenance Due Date Last Done Comments DTAP/TDAP/TD VACCINES (1 - Tdap) 2011 HEPATITIS B VACCINES (1 of 3 - 19+ 3-dose series) 02/17 HPV VACCINES (1 - 3-dose SCDM series) 2019 INFLUENZA VACCINE (#1) 2025
--- OUTSIDE RECORDS SUMMARY | 2025-06-19 08:47 | XMS_ITS | Clinical Summary ---
Author Organization [facility] Care Team Providers Care Internal Grinding Machine Operator Name Role Phone Unavailable Primary Care Provider [...] of 3 - 19+ 3-dose series) 2011 Human Papillomavirus (HPV) Immunization (1 - 3-dose SCDM series) 2019 Influenza Immunization (#1) 2025 SARS-COV-2 Immunization ( - 2024- season) 2025 07/21/2021 Respiratory Syncytial Virus (RSV) Immunization (Adult) [...]
--- OUTSIDE RECORDS SUMMARY | 2025-06-19 08:47 | XMS_ITS | Clinical Summary ---
Author Organization [facility] [address] [facility] Address [address] [place] [address] Phone Care Team Providers Care Digital Sales Representative Name Role Phone Unavailable Primary Care Provider Unavailabl e Allergies No known active allergies Medications ferrous gluconate 325 mg (36 mg iron) Tablet Take 325 mg by mouth 2 times daily. Active Active Problems Problem Noted Date Diagnosed Date Microcytic hypochromic anemia 10/01/2015 Iron deficiency anemia 10/01/2015 Family history of celiac disease 10/01/2015 Social History Tobacco Use Types Packs/Day Years Used Date Smoking Tobacco: Never Alcohol Use Standard Drinks/Week Comments No 0 (1 standard drink = 0.6 oz pur e alcohol) Sex and Gender Information Value Date Recorded Sex Assigned at Not on file Legal Sex Male 10:33 AM JOINT CUTTER Gender Identity Not on file Sexual Orientation Not on file Last Filed Vital Signs Vital Sign Reading Time Taken Comments Blood Pressure 112/63 11/24/2015 2:09 PM CDT Pulse 68 11/24/2015 2:09 PM CDT Temperature 36.6 C (97.9 F) 11/24/2015 2:09 PM CDT Respiratory Rate 16 11/24/2015 2:09 PM CDT Oxygen Saturation 100% 11/24/2015 2:09 PM CDT Inhaled Oxygen Concentration - - Weight 78.9 [...] SCDM series) 2019 INFLUENZA VACCINE (#1) 2025 Insurance [facility]
--- OUTSIDE RECORDS SUMMARY | 2025-06-19 08:47 | XMS_ITS | Clinical Summary ---
Author Organization [facility] [address] Address [address] [place] [address] Care Team Providers Care Rail Filler Name Role Phone No, Physician Primary Care Provider [phone] Latoya Howell MD Unavailable Allergies No known [...] on file Legal Sex Male 9:12 AM INTERACTIVE DESIGNER Gender Identity Not on file Sexual Orientation Not on file Obstetrics History Last Filed Vital Signs Vital Sign Reading Time Taken Comments Blood Pressure 120/78 08/11/2024 8:16 AM INTERACTIVE DESIGNER Pulse 111 08/11/2024 8:16 AM INTERACTIVE DESIGNER Temperature 37.6 C (99.6 F) 08/11/2024 8:16 AM INTERACTIVE DESIGNER Respiratory Rate 22 08/11/2024 8:16 AM INTERACTIVE DESIGNER Oxygen Saturation 97% 08/11/2024 8:16 AM INTERACTIVE DESIGNER Inhaled Oxygen Concentration - - Weight 94.8 kg (209 lb) 08/11/2024 8:16 AM INTERACTIVE DESIGNER Height 177.8 cm (5' 10) 06/05/2022 9:18 AM CDT Body Mass Index 29.99 06/05/2022 9:18 AM CDT Plan of Treatment Health Maintenance Due Date Last Done Comments Depression Screening 1992 Hepatitis C Screening 1990 Hepatitis B Screening 2010 Regular Well Visit/Exam 18-64 2010 DTaP/Tdap/Td Vaccine (3 - Td or Tdap) 10/24/2016 10/24/2006, 09/06/2005 HPV Vaccines (1 - 3-dose SCDM series) 2019 Influenza Vaccine (#1) 2025 , 08/04/2023, 07/11/2022 Varicella Vaccines Completed 09/06/2009, 01/25/1995 Covid-19 Vaccine Completed 08/02/2024, , 07/11/2022, Additional history exists Pneumococcal vaccine <65 Aged Out No longer eligible based on patient's age to complete this topic Insurance * Guarantor: Carlos Davis Account Type Relation to Patient Date of Phone Billing Address Personal/Family Self [address] [place] [address] CHOICE PLUS Care Teams Rail Filler Relationship Specialty Start Date End Date No, Physician PCP - General 06/05/22 Latoya Howell MD 06/05/22
[2025-06-19 09:13] LABS: Hematocrit 46.3 % (42.0-52.0); Hemoglobin 15.2 g/dL (14.0-18.0); Mean Corpuscular HGB Conc 32.8 g/dl (32-36); Mean Corpuscular Hemoglobin 27.2 pg (26-34); Mean Corpuscular Volume 82.8 fl (80-100); Platelet Count Result 215 k/mm3 (150-375); Red Blood Count 5.59 M/mm3 (4.6-6.20); White Blood Count 5.5 K/mm3 (4.5-10.0)
[2025-06-19 09:38] LABS: Alanine Aminotransferase 63 U/L (6-50); Albumin Level 4.5 g/dL (3.5-5.1); Alkaline Phosphatase 111 U/L (38-126); Anion Gap 6 mmol/L (4-12); Aspartate Amino Transferase 39 U/L (17-59); Bilirubin,Total 0.8 mg/dL (0.2-1.3); Blood Urea Nitrogen 14 mg/dL (9-20); Calcium 9.2 mg/dL (8.4-10.2); Carbon Dioxide 29 mmol/L (22-30); Chloride 104 mmol/L (98-107); Cholesterol 221 mg/dL (0-200); Estimated Glomerular Filt Rate > 60; Glucose 100 mg/dL (65-110); HDL Direct 29 mg/dL; Potassium 4.2 mmol/L (3.4-5.0); Sodium 139 mmol/L (137-145); Total Protein 7.4 g/dL (6.3-8.2); Triglycerides 205 mg/dL (<150)
[2025-06-19 10:13] LABS: Thyroid Stimulating Hormone 0.594 uIU/mL (0.465-4.680)
== END 2025-06-19 08:32 | disposition home or self-care (01) ==
LOC: ANHLAB 08:33
PROVIDERS: PCP Family Medicine; Visit Provider Physician Assistant Medical
DX: E78.5 Hyperlipidemia, unspecified (principal); Z00.00 Encounter for general adult medical examination without abnormal findings
CPT/HCPCS: 36415; 80053; 80061; 84443; 85027